=== PATIENT | male | born 1970 | race Caucasian/White ===

== ENCOUNTER 2024-12-04 16:15 | Emergency (ER) | payer SELFPAY ==
[2024-12-04] MEDS ORDERED: METHYLPREDNISOLONE 125 MG INJ ONE (16:31)
[2024-12-04] MEDS ORDERED: IPRATROPIUM BROM 0.5MG/2.5ML ONE (16:31)
[2024-12-04] MEDS ORDERED: ALBUTEROL 2.5 MG/3 ML NEB SOL ONE (16:31)
--- NOTE | 2024-12-04 17:04 | RAD REPORT ---
EXAMINATION: ONE VIEW CHEST XR CLINICAL INDICATION: COPD TECHNIQUE: Frontal chest projection is submitted. Examination is limited by patient positioning and t echnique. COMPARISON: No prior exam. FINDINGS: The lungs are diffusely emphysematous but grossly clear. The heart is upper limit of normal in size. No displaced fractures identified. IMPRESSION: COPD without an acute process suspected.
[2024-12-04 17:14] LABS: Absolute Eosinophils 0.3 K/uL (0-0.5); Absolute Lymphocytes (CBC) 1.7 K/uL (0.7-4.9); Absolute Monocytes 0.7 K/uL (0.1-1.3); Absolute Neutrophil 7.1 K/uL (1.8-8.0); Basophils % 0.4 % (0-1.3); Eosinophils % 2.7 % (0-4.4); Hematocrit 49.8 % (39.6-49.0); Lymphocytes % 17.6 % (15.3-44.8); MCH 29.7 pg (27.0-35.0); MCHC 34.1 g/dL (32.0-36.0); MCV 86.8 fL (80-100); MPV 7.9 fL (7.6-11.3); Monocytes % 7.3 % (3.3-12.3); Nucleated Red Blood Cells % 0.1 % (0-0); Platelets 205 thou/uL (152-406); RBC Red Blood Cell Count 5.73 M/uL (4.33-5.43); Red Cell Distribution Width 13.8 % (12.1-15.2)
[2024-12-04 17:18] LABS: PT Prothrombin Time 11.1 SECONDS (9.4-12.5); Protime INR 1.06
[2024-12-04 17:33] LABS: ALT/SGPT 86 U/L (16-61); AST/SGOT 77 U/L (15-37); Albumin 3.6 g/dL (3.4-5.0); Alkaline Phosphatase 78 U/L (45-117); Anion Gap 6.2 mEq/L (5.0-15.0); BUN Blood Urea Nitrogen 18 mg/dL (7-18); Bicarbonate 31 mEq/L (21-32); Bilirubin Total 0.4 mg/dL (0.2-1.0); Globulin 3.5 g/dL (2.3-3.5); Glomerular Filtration Rate 98 ml/min (=/>90); Glucose Level 160 mg/dL (74-106); Magnesium 2.4 mg/dL (1.6-2.4); NT PRO-BNP 41 pg/mL (<125); Potassium 4.2 mEq/L (3.5-5.1); Protein, Total 7.1 g/dL (6.4-8.2); Sodium Level 140 mEq/L (136-145); Troponin High Sensitivity 45.5 pg/mL (<58.9)
[2024-12-04 17:34] LABS: Bilirubin Direct < 0.2 mg/dL (0-0.2); Bilirubin Indirect, Calculated 0.2 mg/dL (0.2-0.8)
[2024-12-04 17:41] LABS: Influenza A Ag Negative; Influenza B Ag Negative; SARS-CoV-2 Antigen Rapid Res Negative (Negative)
--- NOTE | 2024-12-04 17:52 | ER ---
Nurse's Notes [facility] Name: Bud Gomes Age: 54 yrs Sex: Male : 1970 Arrival Date: 12/04/2024 Time: 16:15 Bed 2 Private MD: Diagnosis: COPD exacerbation Presentation: 12/04 16:07 Chief complaint: EMS states: PT WAS WALKING AROUND BECAME SOB, TRIED ALBUTEROL INHALER. db COPD EXACERBATION HX. EMS GAVE ALBUTEROL TREATMENT AND PLACED PT ON NC 4L O2. Coronavirus screen: Client denies travel out of the [place] in the last 14 days. At this time, the client does not indicate any symptoms associated with coronavirus-19. Ebola Screen: Patient negative for fever greater than or equal to 101.5 degrees Fahrenheit, and additional compatible Ebola Virus Disease symptoms Patient denies exposure to infectious person. Patient denies travel to an Ebola-affected area in the 21 days before illness onset. No symptoms or risks identified at this time. Initial Sepsis Screen: Does the patient meet any 2 criteria? No. Patient's initial sepsis screen is negative. Does the patient have a suspected source of infection? No. Patient's initial sepsis screen is negative. Risk Assessment: Do you want to hurt yourself or someone else? Patient reports no desire to harm self or others. Onset of symptoms was December 04, 2024. 16:07 Method Of Arrival: EMS: [facility] db 16:07 Acuity: ROSIBEL 2 db Triage Assessment: 16:07 General: Appears in no apparent distress. Behavior is calm, cooperative. Pain: Denies db pain. Neuro: Level of Consciousness is awake, alert, obeys commands, Oriented to person, place, time, situation. Respiratory: Reports shortness of breath Airway is patent Respiratory effort is even, unlabored, Respiratory pattern is regular, symmetrical. Historical: - Allergies: 16:25 No Known Allergies; db - PMHx: 16:25 Chronic obstructive lung disease; HIGH BLOOD SUGAR; db - Immunization history:: Adult Immunizations unknown. - Infectious Disease History:: Denies. - Social history:: Smoking status: Patient reports the use of cigarette tobacco products, smokes one pack cigarettes per day. Screenin:09 [facility] ED Fall Risk Assessment (Adult) History of falling in the last 3 months, db including since admission No falls in past 3 months (0 pts) Confusion or Disorientation No (0 pts) Intoxicated or Sedated No (0 pts) Impaired Gait No (0 pts) Mobility Assist Device Used No (0 pt) Altered Elimination No (0 pt) Score/Fall Risk Level 0 - 2 = Low Risk Oriented to surroundings, Maintained a safe environment. Abuse screen: Denies threats or abuse. Denies injuries from another. Nutritional screening: No deficits noted. Tuberculosis screening: No symptoms or risk factors identified. Assessment: 17:09 Reassessment: Patient appears in no apparent distress at this time. Patient and/or db family updated on plan of care and expected duration. Pain level reassessed. Patient is alert, oriented x 3, equal unlabored respirations, skin warm/dry/pink. General: Appears in no apparent distress. comfortable, Behavior is calm, cooperative. Neuro: Level of Consciousness is awake, alert, obeys commands, Oriented to person, place, time, situation. Respiratory: Airway is patent Respiratory effort is even, unlabored, Respiratory pattern is regular, symmetrical. 18:23 Reassessment: Patient appears in no apparent distress at this time. Patient and/or db family updated on plan of care and expected duration. Pain level reassessed. Patient is alert, oriented x 3, equal unlabored respirations, skin warm/dry/pink. Patient states feeling better. Patient states symptoms have improved. Vital Signs: 16:07 BP 138 / 107; Pulse 103; Resp 20; Temp 97.5(O); Pulse Ox 94% on R/A; Weight 81.65 kg; db Height 5 ft. 10 in. ; 17:00 BP 136 / 98; Pulse 92; Resp 18; Pulse Ox 98% ; db 18:15 BP 129 / 94; Pulse 83; Resp 16; Pulse Ox 95% on R/A; db 16:07 Body Mass Index 25.83 (81.65 kg, 177.8 cm) db 16:07 PLACED ON NC 2 L O2 db ED Course: 16:07 Arm band placed on Patient placed in an exam room. db 16:17 Patient arrived in ED. sp3 16:17 Jennifer Andrade MD is Attending Physician. sp3 16:20 Maryse Phelps, LEA is Primary Nurse. db 16:23 Triage completed. db 16:47 Initial lab(s) drawn, by me, sent to lab. Inserted saline lock: 20 gauge in left db antecubital area, using aseptic technique. Blood collected. Flushed with 10 mL NS. 17:01 XRAY Chest (1 view) In Process Unspecified. EDMS 17:10 Patient has correct armband on for positive identification. Bed in low position. Call db light in reach. Side rails up X 1. Pulse ox on. NIBP on. Pillow given. 18:23 Provided Education on: DISCHARGE AND FOLLOWUP. db 18:23 No provider procedures requiring assistance completed. IV discontinued, intact, db bleeding controlled, No redness/swelling at site. Administered Medications: 16:47 Drug: DuoNeb Nebulize (3:1) (2.5 mg - 0.5 mg) 3 ml Nebulizer once Route: Nebulizer; db 18:24 Follow up: Response: No adverse reaction db 16:47 Drug: MethylPrednisoLONE IVP 60 mg IVP once Route: IVP; Site: left antecubital; db 18:24 Follow up: Response: No adverse reaction db Medication: 17:10 VIS not applicable for this client. db Outcome: 17:52 Discharge ordered by . sp3 18:23 Discharged to home ambulatory, db 18:23 Condition: stable 18:23 Discharge instructions given to patient, Instructed on discharge instructions, follow up and referral plans. Prescriptions given X 2, 18:24 Patient left the ED. db Signatures: Dispatcher [employer] EDMS Jennifer Andrade MD MD sp3 Maryse Phelps, RN RN db Corrections: (The following items were deleted from the chart) 16:26 16:25 PMHx: Diabetes mellitus; db db
--- NOTE | 2024-12-04 17:52 | EDPHYS ---
Physician Documentation [facility] Name: Bud Gomes Age: 54 yrs Sex: Male : 1970 Arrival Date: 12/04/2024 Time: 16:15 Bed 2 Private MD: ED Physician Jennifer Andrade HPI: 12/04 16:28 This 54 yrs old Male presents to ER via EMS with complaints of Shortness Of Breath. sp3 16:28 54-year-old male with history of COPD, prior hyperglycemia now presents to the ED via sp3 EMS for chief complaint shortness of breath and cough. Patient is still a smoker. Patient was placed on 2 L nasal cannula due to pulse oxygenation in the 91 to 92% range for EMS. No significant wheezing reported by EMS staff. Patient denies headache, fever, chest pain, back pain, abdominal pain, nausea, vomit, diarrhea, syncope, near syncope, known sick contacts, production on cough, or any other signs or symptoms on ROS at this time.. Historical: - Allergies: 16:25 No Known Allergies; db - PMHx: 16:25 Chronic obstructive lung disease; HIGH BLOOD SUGAR; db - Immunization history:: Adult Immunizations unknown. - Infectious Disease History:: Denies. - Social history:: Smoking status: Patient reports the use of cigarette tobacco products, smokes one pack cigarettes per day. ROS: 16:33 Constitutional: Negative for fever, chills, and weight loss, Eyes: Negative for injury, sp3 pain, redness, and discharge, ENT: Negative for injury, pain, and discharge, Neck: Negative for injury, pain, and swelling, Cardiovascular: Negative for chest pain, palpitations, and edema, Abdomen/GI: Negative for abdominal pain, nausea, vomiting, diarrhea, and constipation, Back: Negative for injury and pain, MS/Extremity: Negative for injury and deformity, Skin: Negative for injury, rash, and discoloration, Neuro: Negative for headache, weakness, numbness, tingling, and seizure, Psych: Negative for depression, anxiety, suicide ideation, homicidal ideation, and hallucinations, Allergy/Immunology: Negative for hives, rash, and allergies, Endocrine: Negative for neck swelling, polydipsia, polyuria, polyphagia, and marked weight changes, Hematologic/Lymphatic: Negative for swollen nodes, abnormal bleeding, and unusual bruising, 16:33 All other systems are negative, Exam: 16:33 Constitutional: This is a well developed, well nourished patient who is awake, alert, sp3 and in no acute distress. Head/Face: Normocephalic, atraumatic. Eyes: Pupils equal round and reactive to light, extra-ocular motions intact. Lids and lashes normal. Conjunctiva and sclera are non-icteric and not injected. Cornea within normal limits. Periorbital areas with no swelling, redness, or edema. Neck: Trachea midline, no thyromegaly or masses palpated, and no cervical lymphadenopathy. Supple, full range of motion without nuchal rigidity, or vertebral point tenderness. No Meningismus. Chest/axilla: Normal chest wall appearance and motion. Nontender with no deformity. No lesions are appreciated. Cardiovascular: Regular rate and rhythm with a normal S1 and S2. No gallops, murmurs, or rubs. Normal PMI, no JVD. No pulse deficits. Abdomen/GI: Soft, non-tender, with normal bowel sounds. No distension or tympany. No guarding or rebound. No evidence of tenderness throughout. Back: No spinal tenderness. No costovertebral tenderness. Full range of motion. Skin: Warm, dry with normal turgor. Normal color with no rashes, no lesions, and no evidence of cellulitis. MS/ Extremity: Pulses equal, no cyanosis. Neurovascular intact. Full, normal range of motion. Neuro: Awake and alert, GCS 15, oriented to person, place, time, and situation. Cranial nerves II-XII grossly intact. Motor strength 5/5 in all extremities. Sensory grossly intact. Cerebellar exam normal. Normal gait. Psych: Awake, alert, with orientation to person, place and time. Behavior, mood, and affect are within normal limits. 16:33 Respiratory: Active cough nonproductive. Scattered wheeze., 17:30 ECG was reviewed by the Attending Physician. EKG demonstrates normal sinus rhythm at 93 sp3 bpm with normal intervals, normal QRS, normal axis, normal ST/T-segment's without evidence of acute ischemia. Vital Signs: 16:07 BP 138 / 107; Pulse 103; Resp 20; Temp 97.5(O); Pulse Ox 94% on R/A; Weight 81.65 kg; db Height 5 ft. 10 in. ; 17:00 BP 136 / 98; Pulse 92; Resp 18; Pulse Ox 98% ; db 18:15 BP 129 / 94; Pulse 83; Resp 16; Pulse Ox 95% on R/A; db 16:07 Body Mass Index 25.83 (81.65 kg, 177.8 cm) db 16:07 PLACED ON NC 2 L O2 db MDM: 16:17 Medical Screening Exam initiated sp3 16:38 Data reviewed: vital signs, nurses notes, EMS record, old medical records, lab test sp3 result(s), EKG, radiologic studies. ED course: 54-year-old male with COPD history with shortness of breath. Demential diagnosis include COPD exacerbation, bronchitis, pneumonia, ACS, CHF, among others. Workup will include EKG, chest x-ray standard labs. Nebulizer and Solu-Medrol also ordered. Disposition pending workup patient course.. 17:51 ED course: Patient much improved and now breathing at 14-16 and self reports sp3 significantly improved symptoms. Patient is out of his inhaler. We will discharge him on inhaler and steroids with follow-up to his PCP. I gave extensive smoking cessation counseling.. 12/04 16:17 Order name: Basic Metabolic Panel; Complete Time: 17:44 sp3 12/04 16:17 Order name: CBC with Diff; Complete Time: 17:44 sp3 12/04 16:17 Order name: LFT's; Complete Time: 17:44 sp3 12/04 16:17 Order name: Magnesium; Complete Time: 17:44 sp3 12/04 16:17 Order name: NT PRO-BNP; Complete Time: 17:44 sp3 12/04 16:17 Order name: PT-INR; Complete Time: 17:44 sp3 12/04 16:17 Order name: Troponin HS; Complete Time: 17:44 sp3 12/04 17:09 Order name: COVID-19 Ag + Flu A+B Ag; Complete Time: 17:44 EDMS 12/04 16:17 Order name: XRAY Chest (1 view); Complete Time: 17:07 sp3 12/04 16:17 Order name: Cardiac monitoring; Complete Time: 16:49 sp3 12/04 16:17 Order name: EKG - Nurse/Tech; Complete Time: 17:08 sp3 02/19 16:17 Order name: IV Saline Lock; Complete Time: 17:08 sp3 12/04 16:17 Order name: Labs collected and sent; Complete Time: 17:08 sp3 12/04 16:17 Order name: O2 Per Protocol; Complete Time: 16:49 sp3 12/04 16:17 Order name: O2 Sat Monitoring; Complete Time: 16:49 sp3 Administered Medications: 16:47 Drug: DuoNeb Nebulize (3:1) (2.5 mg - 0.5 mg) 3 ml Nebulizer once Route: Nebulizer; db 18:24 Follow up: Response: No adverse reaction db 16:47 Drug: MethylPrednisoLONE IVP 60 mg IVP once Route: IVP; Site: left antecubital; db 18:24 Follow up: Response: No adverse reaction db Disposition Summary: 12/04/24 17:52 Discharge Ordered Notes: Location: Home sp3 Condition: Stable sp3 Diagnosis - COPD exacerbation sp3 Followup: sp3 - With: Private Physician - When: Upon discharge from the Emergency Department - Reason: Continuance of care Discharge Instructions: - Discharge Summary Sheet sp3 - Living With COPD sp3 Forms: - Medication Reconciliation Form sp3 - Antibiotic Education sp3 - Prescription Opioid Use sp3 - Patient Portal Instructions sp3 - Leadership Thank You Letter sp3 - Work release form db Prescriptions: - albuterol sulfate 90 mcg/actuation Inhalation HFA Aerosol Inhaler - inhale 3 inhalation INHALATION route every 3 hours as needed for shortness of sp3 breath or wheezing; until breathing returns to target peak flow/parameters; 2 Applicator; Refills: 0, Product Selection Permitted - Prednisone 20 mg Oral Tablet - take 2 tablets ORAL route once daily for 5 days; 10 tablet; Refills: 0, Product sp3 Selection Permitted Signatures: Dispatcher [employer] EDMS Jennifer Andrade MD MD sp3 Maryse Phelps, RN RN db Corrections: (The following items were deleted from the chart) 16:18 16:18 BASIC METABOLIC PANEL+C.LAB.BRZ ordered. EDMS EDMS 16:18 16:18 CBC+H.LAB.BRZ ordered. EDMS EDMS 16:18 16:18 HEPATIC FUNCTION+C.LAB.BRZ ordered. EDMS EDMS 16:18 16:18 MAGNESIUM+C.LAB.BRZ ordered. EDMS EDMS 16:18 16:18 PROBNP+C.LAB.BRZ ordered. EDMS EDMS 16:18 16:18 PROTIME (+INR)+COAG.LAB.BRZ ordered. EDMS EDMS 16:18 16:18 Troponin High Sensitivity+C.LAB.BRZ ordered. EDMS EDMS 16:18 16:18 Chest Single View+RAD.RAD.BRZ ordered. EDMS EDMS 16: 16:25 PMHx: Diabetes mellitus; db db 17:09 16:33 Influenza Screen (A \T\ B)+BA.LAB.BRZ ordered. EDMS EDMS 17: 16:33 SARS-COV-2 Antigen Rapid+I.LAB.BRZ ordered. EDMS EDMS
[2024-12-04 21:49] VITALS: BP 129/94; O2SAT 95
== END 2024-12-04 18:24 | disposition home or self-care (01) ==
LOC: ER 16:15
DX: J44.1 Chronic obstructive pulmonary disease with (acute) exacerbation (principal); F17.210 Nicotine dependence, cigarettes, uncomplicated; Z11.52 Encounter for screening for COVID-19
CPT/HCPCS: 36415; 71045; 80048; 80076; 83735; 83880; 84484; 85025; 85610; 87428; 93005; J2919; J7613; J7644